=== PATIENT | female | born 1955 | race Caucasian/White ===

== ENCOUNTER 2018-10-11 20:16 | Emergency (ER) | payer OTHER ==
[~2018-10-11] VITALS: Ht 157.5 cm; Wt 45.4 kg
[2018-10-12] MEDS ORDERED: CEFUROXIME500 MG PO (02:46)
== END 2018-10-12 02:56 | disposition home or self-care (01) ==
LOC: ER 20:16
DX: N93.8 Other specified abnormal uterine and vaginal bleeding (principal); R10.2 Pelvic and perineal pain